=== PATIENT | female | born 1995 | race African-American/Black ===

== ENCOUNTER 2020-05-21 19:01 | Emergency (ER) | payer OTHER ==
[~2020-05-21] VITALS: Ht 180.3 cm; Wt 62.0 kg
[2020-05-21] MEDS ORDERED: ACETAMINOPHEN 325MG TABLET PO STA (20:13)
[2020-05-21] MEDS ORDERED: ONDANSETRON 4MG ODT PO ONE (20:15)
[2020-05-21] MEDS ORDERED: DICYCLOMINE HCL 10MG CAPSULE PO ONE (20:15)
[2020-05-21 20:41] LABS: CLARITY URINE CLEAR (CLEAR); COLOR URINE YELLOW (YELLOW); KETONES URINE 3+ (NEGATIVE); LEUKOCYTE ESTERASE URINE NEGATIVE (NEGATIVE); NITRITE URINE NEGATIVE (NEGATIVE); OCCULT BLOOD URINE NEGATIVE (NEGATIVE); PROTEIN URINE NEGATIVE (NEGATIVE); SPECIFIC GRAVITY URINE 1.016 (1.005-1.030); UROBILINOGEN URINE 0.2 E.U./dL (0.2-1.0)
[2020-05-21 20:44] LABS: BASOPHILS % 0.8 % (0.0-2.0); EOSINOPHILS % 0.7 % (0.0-5.0); HEMATOCRIT. 38.8 % (36.0-48.0); HEMOGLOBIN. 12.8 g/dL (12.0-16.0); LYMPHOCYTES % 16.7 % (20.0-50.0); MEAN CORPUSCULAR HEMOGLOBIN 28.1 pg (28.0-32.0); MEAN CORPUSCULAR VOLUME 85.1 fL (81.0-99.0); MEAN PLATELET VOLUME 8.6 fl (7.4-10.4); MONOCYTES % 7.5 % (2.0-8.0); NEUTROPHILS % 74.3 % (40.0-76.0); PLATELET 268 x1000/uL (130-400); RED BLOOD CELL COUNT 4.57 mill/uL (4.2-5.4); RED CELL DISTRIBUTION WIDTH 18.7 % (11.6-14.6)
[2020-05-21 20:51] LABS: CHLORIDE 104 mEq/L (98-107)
[2020-05-21 20:58] LABS: HCG SCREEN NEGATIVE
[2020-05-21 22:00] VITALS: BP 125/74
[2020-05-21] MEDS ORDERED: DICY10CA88 MT (22:05)
== END 2020-05-21 22:20 | disposition home or self-care (01) ==
LOC: ER 19:01
DX: R10.9 Unspecified abdominal pain (principal); R19.7 Diarrhea, unspecified
CPT/HCPCS: 36415; 80053; 81003; 83690; 84703; 85025; 85610; 99284; Q0162